=== PATIENT | female | born 1960 | race Hispanic/Latino ===

== ENCOUNTER 2024-08-02 16:24 | Emergency (ER) | payer OTHER | END 2024-08-02 19:21 | disposition left against medical advice (07) | LOC: ERS 16:24 | DX: Z53.21 Procedure and treatment not carried out due to patient leaving prior to being seen by health care provider (principal) ==

== ENCOUNTER 2024-08-03 19:58 | Emergency (ER) | payer OTHER | END 2024-08-03 20:56 | disposition left against medical advice (07) | LOC: ERS 19:58 | DX: Z53.21 Procedure and treatment not carried out due to patient leaving prior to being seen by health care provider (principal) ==